=== PATIENT | female | born 1990 | race Caucasian/White ===

== ENCOUNTER 2016-09-26 01:36 | Inpatient (IN) | payer OTHER ==
[~2016-09-26] VITALS: Ht 152.4 cm; Wt 79.6 kg
[~2016-09-26 01:36] MED LIST: INSU100C5 SQ-INSULIN; INSU100V8 SQ-INSULIN; LISI2.5T PO; NITR100C PO; ROSU10TA PO; SULF1TAB23
[2016-09-26] MEDS ORDERED: KETOROLAC 30 MG/1 ML ONE (01:54)
[2016-09-26] MEDS ORDERED: ONDANSETRON 2MG/ML, 2ML ONE (01:54)
[2016-09-26] MEDS ORDERED: KETOROLAC 30 MG/1 ML IVPush ONE (02:00)
[2016-09-26] MEDS ORDERED: MORPHINE SULFATE 4 MG/ML, 1ML IVPush PRN (02:00)
[2016-09-26] MEDS ORDERED: ONDANSETRON 2MG/ML, 2ML IVPush ONE (02:00)
[2016-09-26] MEDS ORDERED: SODIUM CHLORIDE 0.9% 1,000ML IVBOLUS ONE ×2 (02:00→03:00)
[2016-09-26 02:10] LABS: PH, VENOUS 7.297 pH (7.320-7.420)
[2016-09-26] MEDS ORDERED: MORPHINE SULFATE 4 MG/ML, 1ML ONE (02:15)
[2016-09-26 02:19] LABS: ASPARTATE AMINO TRANSFERASE 13 U/L (15-37); BLOOD UREA NITROGEN 18 mg/dL (7-18)
[2016-09-26] MEDS ORDERED: INSULIN REGULAR 100 UNITS/ML, 3ML VIAL ONE (02:53)
[2016-09-26] MEDS ORDERED: INSULIN REGULAR 100 UNITS/ML, 3ML VIAL SQ-INSULIN ONE (03:00)
[2016-09-26] MEDS: SODIUM CHLORIDE 0.9% 1,000 ML IV SCH ×3 (03:24→15:43)
[2016-09-26] MEDS ORDERED: KETOROLAC 30 MG/1 ML IVPush PRN (03:30)
[2016-09-26] MEDS ORDERED: ACETAMINOPHEN 325 MG TABLET PO PRN (03:30)
[2016-09-26] MEDS ORDERED: BISACODYL 10 MG SUPP PR PRN (03:30)
[2016-09-26] MEDS ORDERED: LABETALOL 5MG/ML, 20ML IV PRN (03:30)
[2016-09-26] MEDS ORDERED: ONDANSETRON ODT 4 MG PO PRN (03:30)
[2016-09-26] MEDS ORDERED: POLYETHYLENE GLYCOL 17 GM PACKET PO PRN (03:30)
[2016-09-26] MEDS ORDERED: DOCUSATE 100 MG CAPSULE PO PRN (03:30)
[2016-09-26] MEDS ORDERED: ENOXAPARIN 40 MG/0.4 ML SQ SCH (03:30)
[2016-09-26 03:33] VITALS: BP 142/81
[2016-09-26] MEDS ORDERED: PANTOPRAZOLE 40 MG IV IVPush SCH (04:00)
[2016-09-26] MEDS: INSULIN ASPART 100 UNITS/ML, PEN SQ-INSULIN SCH ×4 (04:55→15:50)
[2016-09-26] MEDS: INSULIN DETEMIR 100 UNITS/ML, PEN SQ-INSULIN SCH ×3 (04:56→15:49)
[2016-09-26 05:22] LABS: IS PT STATUS REG ER OR PRE ER? NO
[2016-09-26 06:38] LABS: BLOOD UREA NITROGEN 17 mg/dL (7-18)
[2016-09-26 07:04] VITALS: BP 107/68
[2016-09-26] MEDS ORDERED: GABAPENTIN 100 MG CAPSULE PO SCH (09:00)
[2016-09-26 10:06] LABS: BLOOD UREA NITROGEN 18 mg/dL (7-18)
[2016-09-26 10:13] LABS: IS PT STATUS REG ER OR PRE ER? NO
[2016-09-26] MEDS ORDERED: GABA100C8 PO (11:36)
[2016-09-26] MEDS ORDERED: INSU100I18 SQ-INSULIN (11:36)
[2016-09-26] MEDS ORDERED: Tramadol Hcl PO (11:36)
[2016-09-26] MEDS ORDERED: INSU100I28 SQ-INSULIN (11:36)
[2016-09-26 13:11] VITALS: BP 108/66
== END 2016-09-26 16:38 | disposition home or self-care (01) | DRG 919 ==
LOC: ED 02:00 → EDIP 02:46 → 3NE 03:26 → DCLOUNGE 16:00
PROVIDERS: ADMIT Internal Medicine
PROC: 0T9B70Z Drainage of Bladder with Drainage Device, Via Natural or Artificial Opening (ICD-10-PCS; principal; 2016-09-26)
DX: T85.694A Other mechanical complication of insulin pump, initial encounter (principal); E10.10 Type 1 diabetes mellitus with ketoacidosis without coma; E87.1 Hypo-osmolality and hyponatremia; R65.10 Systemic inflammatory response syndrome (SIRS) of non-infectious origin without acute organ dysfunction; Y74.2 Prosthetic and other implants, materials and accessory general hospital and personal-use devices associated with adverse incidents; E10.319 Type 1 diabetes mellitus with unspecified diabetic retinopathy without macular edema; E10.42 Type 1 diabetes mellitus with diabetic polyneuropathy; E86.0 Dehydration; Z96.41 Presence of insulin pump (external) (internal); M79.7 Fibromyalgia; Z79.4 Long term (current) use of insulin; Z80.8 Family history of malignant neoplasm of other organs or systems; Z83.3 Family history of diabetes mellitus; Z91.018 Allergy to other foods
CPT/HCPCS: 36415; 80048; 80053; 81003; 82010; 82803; 82947; 82962; 83036; 83605; 83690; 83735; 84439; 84443; 84484; 84703; 85025; 96361; 96372; 96374; 96375; J1650; J1815; J1885; J2405; C9113; J7030

== ENCOUNTER 2016-11-20 22:15 | Emergency (ER) | payer OTHER ==
[~2016-11-20] VITALS: Ht 152.4 cm; Wt 80.4 kg
[~2016-11-20 22:15] MED LIST changes: +GABA-826 PO; +INSU100I18 SQ-INSULIN; +INSU100I28 SQ-INSULIN; +Tramadol Hcl PO
[2016-11-20 22:16] VITALS: BP 123/86
== END 2016-11-20 23:01 | disposition home or self-care (01) ==
LOC: ED 22:50
DX: E10.40 Type 1 diabetes mellitus with diabetic neuropathy, unspecified (principal); M79.642 Pain in left hand; M79.641 Pain in right hand
CPT/HCPCS: 99283

== ENCOUNTER 2017-06-24 14:25 | Inpatient (IN) | payer BC, OTHER ==
[~2017-06-24] VITALS: Ht 152.4 cm; Wt 83.0 kg
[2017-06-24] MEDS ORDERED: ONDANSETRON 2MG/ML, 2ML IVPush ONE (15:30)
[2017-06-24 15:37] LABS: BASOPHILS # (AUTO) 0.07 x10^3/uL (0-0.1); BASOPHILS % (AUTO) 1 % (0-1); EOSINOPHILS # (AUTO) 0.04 x10^3/uL (0-0.4); EOSINOPHILS % (AUTO) 0 % (1-7); LYMPHOCYTES # (AUTO) 2.49 x10^3/uL (1-3.4); LYMPHOCYTES % (AUTO) 24 % (22-44); MD NO; MEAN CORPUSCULAR HEMOGLOBIN 29.7 pg (27.0-34.8); MEAN CORPUSCULAR HGB CONC 34.3 g/dL (32.4-35.8); MEAN CORPUSCULAR VOLUME 86.7 fL (80-100); MEAN PLATELET VOLUME 9.4 fL (7.4-10.4); MONOCYTES # (AUTO) 0.42 x10^3/uL (0.2-0.8); MONOCYTES % (AUTO) 4 % (2-9); NEUTROPHILS # (AUTO) 7.51 x10^3/uL (1.8-6.8); NEUTROPHILS % (AUTO) 71 % (42-75); PLATELET COUNT 288 x10^3/uL (130-400); RED BLOOD COUNT 4.92 x10^6/uL (3.82-5.3); RED CELL DISTRIBUTION WIDTH 13.6 % (9.6-15.2)
[2017-06-24] MEDS ORDERED: ONDANSETRON 2MG/ML, 2ML ONE (15:46)
[2017-06-24 15:47] LABS: ALANINE AMINOTRANSFERASE 20 U/L (12-78); ALBUMIN 3.6 g/dL (3.4-5.0); ANION GAP 16 mmol/L (5-15); CALCIUM 9.1 mg/dL (8.5-10.1); CHLORIDE 102 mmol/L (98-107)
[2017-06-24 15:51] LABS: ALKALINE PHOSPHATASE 100 U/L (45-117); BILIRUBIN,TOTAL 0.5 mg/dL (0.2-1.0); TOTAL PROTEIN 8.2 g/dL (6.4-8.2)
[2017-06-24] MEDS ORDERED: SODIUM CHLORIDE 0.9% 1,000ML IVBOLUS ONE ×2 (16:00→17:00)
[2017-06-24 16:22] LABS: PH, VENOUS 7.242 pH (7.320-7.420)
[2017-06-24] MEDS ORDERED: SODIUM CHLORIDE FLUSH 10ML SYR IVF ONE (16:30)
[2017-06-24 16:32] LABS: ACETONE, SERUM Large (80mg/dL) mg/dL (Negative)
[2017-06-24] MEDS ORDERED: REGULAR INSULIN 62.5 UNITS in SODIUM CHLORIDE 0.9% 249.375 ML IV PRN ×2 (16:56→17:30)
[2017-06-24] MEDS ORDERED: SODIUM CHLORIDE 0.9% 1,000 ML IV ONE (17:21)
[2017-06-24 17:22] LABS: MICROSCOPIC NOT IND
[2017-06-24 17:26] LABS: CULTURE INDICATED? NO
[2017-06-24] MEDS ORDERED: BISACODYL 10 MG SUPP PR PRN (17:30)
[2017-06-24] MEDS ORDERED: POLYETHYLENE GLYCOL 17 GM PACKET PO PRN (17:30)
[2017-06-24] MEDS ORDERED: SODIUM CHLORIDE FLUSH 10ML SYR IVF PRN (17:30)
[2017-06-24 18:31] LABS: HEMOGLOBIN A1C 9.8 % (4.2-6.3)
[2017-06-24 19:55] LABS: ANION GAP 12 mmol/L (5-15); CALCIUM 8.2 mg/dL (8.5-10.1); CHLORIDE 112 mmol/L (98-107); CREATININE 0.71 mg/dL (0.55-1.02)
[2017-06-24] MEDS: ENOXAPARIN 40 MG/0.4 ML SQ SCH (20:22)
[2017-06-24] MEDS: FAMOTIDINE 20 MG TABLET PO SCH (20:22)
[2017-06-24] MEDS: D5%-0.45% NACL 1,000 ML IV SCH (23:24)
[2017-06-24 23:26] VITALS: BP 118/67
[2017-06-25 01:19] LABS: ANION GAP 11 mmol/L (5-15); CHLORIDE 114 mmol/L (98-107); CREATININE 0.53 mg/dL (0.55-1.02)
[2017-06-25 04:00] VITALS: BP 115/69
[2017-06-25 05:32] LABS: BASOPHILS # (AUTO) 0.04 x10^3/uL (0-0.1); BASOPHILS % (AUTO) 0 % (0-1); EOSINOPHILS # (AUTO) 0.14 x10^3/uL (0-0.4); EOSINOPHILS % (AUTO) 2 % (1-7); LYMPHOCYTES # (AUTO) 4.18 x10^3/uL (1-3.4); LYMPHOCYTES % (AUTO) 46 % (22-44); MD NO; MEAN CORPUSCULAR HEMOGLOBIN 29.6 pg (27.0-34.8); MEAN CORPUSCULAR HGB CONC 33.9 g/dL (32.4-35.8); MEAN CORPUSCULAR VOLUME 87.2 fL (80-100); MEAN PLATELET VOLUME 8.8 fL (7.4-10.4); MONOCYTES # (AUTO) 0.46 x10^3/uL (0.2-0.8); MONOCYTES % (AUTO) 5 % (2-9); NEUTROPHILS # (AUTO) 4.24 x10^3/uL (1.8-6.8); NEUTROPHILS % (AUTO) 47 % (42-75); PLATELET COUNT 266 x10^3/uL (130-400); RED BLOOD COUNT 4.08 x10^6/uL (3.82-5.3); RED CELL DISTRIBUTION WIDTH 13.4 % (9.6-15.2)
[2017-06-25 05:42] LABS: ANION GAP 11 mmol/L (5-15); CHLORIDE 113 mmol/L (98-107)
[2017-06-25 05:44] LABS: CREATININE 0.54 mg/dL (0.55-1.02)
[2017-06-25 08:31] LABS: ANION GAP 8 mmol/L (5-15); CALCIUM 8.1 mg/dL (8.5-10.1); CHLORIDE 113 mmol/L (98-107); CREATININE 0.55 mg/dL (0.55-1.02)
[2017-06-25] MEDS: D5%-0.45% NACL 1,000 ML IV SCH (09:00)
[2017-06-25] MEDS: FAMOTIDINE 20 MG TABLET PO SCH (09:00)
[2017-06-25] MEDS: LISINOPRIL 5 MG TABLET PO SCH (09:00)
[2017-06-25] MEDS ORDERED: MAGNESIUM SULFATE PMX 2GM/50ML 50 ML IV ONE (10:30)
[2017-06-25 13:14] LABS: ANION GAP 12 mmol/L (5-15); CALCIUM 7.9 mg/dL (8.5-10.1); CHLORIDE 112 mmol/L (98-107); CREATININE 0.46 mg/dL (0.55-1.02)
[2017-06-25] MEDS: ENOXAPARIN 40 MG/0.4 ML SQ SCH (17:30)
[2017-06-25 19:35] LABS: ANION GAP 11 mmol/L (5-15); CALCIUM 7.9 mg/dL (8.5-10.1); CHLORIDE 111 mmol/L (98-107); CREATININE 0.64 mg/dL (0.55-1.02)
[2017-06-26 01:14] LABS: ANION GAP 9 mmol/L (5-15); CALCIUM 7.9 mg/dL (8.5-10.1); CHLORIDE 112 mmol/L (98-107); CREATININE 0.62 mg/dL (0.55-1.02)
[2017-06-26 04:00] VITALS: BP 119/74
[2017-06-26 04:43] LABS: ANION GAP 10 mmol/L (5-15); CHLORIDE 112 mmol/L (98-107); CREATININE 0.59 mg/dL (0.55-1.02)
[2017-06-26] MEDS: LISINOPRIL 5 MG TABLET PO SCH (08:23)
== END 2017-06-26 10:40 | disposition home or self-care (01) | DRG 639 ==
LOC: ED 17:20 → EDIP 17:21 → ED 17:50 → CCU 18:55 → ICU 06-25 18:08
PROVIDERS: ADMIT Hospitalist; ATTEND Hospitalist
DX: E10.10 Type 1 diabetes mellitus with ketoacidosis without coma (principal); E86.0 Dehydration; Z79.4 Long term (current) use of insulin; M79.7 Fibromyalgia; Z88.8 Allergy status to other drugs, medicaments and biological substances; Z91.018 Allergy to other foods
CPT/HCPCS: 36415; 80048; 80053; 81003; 82010; 82803; 82962; 83036; 83735; 84100; 84703; 85025; 87081; 96374; J1650; J1815; J2405; J3475; J7030; J7050

== ENCOUNTER 2017-10-21 20:27 | Emergency (ER) | payer BC, OTHER ==
[~2017-10-21] VITALS: Ht 152.4 cm; Wt 73.7 kg
[2017-10-21 21:06] LABS: MICROSCOPIC AUTO
[2017-10-21 21:11] LABS: CULTURE INDICATED? NO
[2017-10-21] MEDS ORDERED: SODIUM CHLORIDE FLUSH 10ML SYR IVF ONE (21:30)
[2017-10-21] MEDS ORDERED: MORPHINE SULFATE 4 MG/ML, 1ML IVPush PRN (21:30)
[2017-10-21] MEDS ORDERED: ONDANSETRON ODT 4 MG PO ONE (21:30)
[2017-10-21] MEDS ORDERED: MORPHINE SULFATE 4 MG/ML, 1ML ONE (21:32)
[2017-10-21] MEDS ORDERED: ONDANSETRON ODT 4 MG ONE (21:32)
[2017-10-21 21:39] LABS: BASOPHILS # (AUTO) 0.08 x10^3/uL (0-0.1); BASOPHILS % (AUTO) 1 % (0-1); EOSINOPHILS # (AUTO) 0.07 x10^3/uL (0-0.4); EOSINOPHILS % (AUTO) 1 % (1-7); LYMPHOCYTES # (AUTO) 2.62 x10^3/uL (1-3.4); LYMPHOCYTES % (AUTO) 27 % (22-44); MD NO; MEAN CORPUSCULAR HEMOGLOBIN 29.9 pg (27.0-34.8); MEAN CORPUSCULAR HGB CONC 33.4 g/dL (32.4-35.8); MEAN CORPUSCULAR VOLUME 89.4 fL (80-100); MEAN PLATELET VOLUME 8.2 fL (7.4-10.4); MONOCYTES # (AUTO) 0.65 x10^3/uL (0.2-0.8); MONOCYTES % (AUTO) 7 % (2-9); NEUTROPHILS # (AUTO) 6.41 x10^3/uL (1.8-6.8); NEUTROPHILS % (AUTO) 65 % (42-75); PLATELET COUNT 380 x10^3/uL (130-400); RED BLOOD COUNT 4.55 x10^6/uL (3.82-5.3); RED CELL DISTRIBUTION WIDTH 14.1 % (9.6-15.2)
[2017-10-21 21:49] LABS: ALANINE AMINOTRANSFERASE 19 U/L (12-78); ALBUMIN 2.8 g/dL (3.4-5.0); ANION GAP 9 mmol/L (5-15); CALCIUM 9.2 mg/dL (8.5-10.1); CHLORIDE 108 mmol/L (98-107); CREATININE 0.72 mg/dL (0.55-1.02)
[2017-10-21 21:54] LABS: ALKALINE PHOSPHATASE 76 U/L (45-117); BILIRUBIN,TOTAL 0.1 mg/dL (0.2-1.0); TOTAL PROTEIN 7.2 g/dL (6.4-8.2)
[2017-10-21] MEDS ORDERED: OMNIPAQUE 350 MG/ML, 100ML BOTTLE ONE (22:24)
[2017-10-21 22:50] VITALS: BP 116/89
== END 2017-10-21 22:53 | disposition home or self-care (01) ==
LOC: ED 22:47
DX: R10.31 Right lower quadrant pain (principal); R10.11 Right upper quadrant pain; E10.10 Type 1 diabetes mellitus with ketoacidosis without coma
CPT/HCPCS: 36415; 74177; 80053; 81001; 83690; 84703; 85025; 96374; 99285; Q0162; Q9967

== ENCOUNTER 2018-05-18 10:16 | Emergency (ER) | payer BC, OTHER ==
[~2018-05-18] VITALS: Ht 152.4 cm; Wt 72.2 kg
[2018-05-18 10:38] VITALS: BP 142/91
[2018-05-18] MEDS ORDERED: HYDROcodone/APAP 5/325 TABLET PO ONE (11:00)
[2018-05-18] MEDS ORDERED: HYDROcodone/APAP 5/325 TABLET ONE (11:02)
== END 2018-05-18 12:13 | disposition home or self-care (01) ==
LOC: ED 11:08
DX: S92.354A Nondisplaced fracture of fifth metatarsal bone, right foot, initial encounter for closed fracture (principal); W19.XXXA Unspecified fall, initial encounter; Y93.89 Activity, other specified; Y92.410 Unspecified street and highway as the place of occurrence of the external cause; Y99.8 Other external cause status
CPT/HCPCS: 29515; 99283